=== PATIENT | female | born 1985 | race Two or more races ===

== ENCOUNTER 2018-03-10 07:27 | Observation (INO) | payer OTHER ==
[~2018-03-10] VITALS: Ht 172.7 cm; Wt 90.5 kg
[2018-03-10 07:50] VITALS: BP 135/83
[2018-03-10 14:09] VITALS: BP 126/75
[2018-03-10 16:50] VITALS: BP 116/67
[2018-03-10 22:09] VITALS: BP 111/73
[2018-03-11 00:35] VITALS: BP 111/73
[2018-03-11 05:14] VITALS: BP 104/66
[2018-03-11 08:28] VITALS: BP 103/66
== END 2018-03-11 08:52 | disposition home or self-care (01) | DRG 404 ==
LOC: DS 07:27 → OR 09:30 → MU 12:40
PROVIDERS: ADMIT Surgery
PROC: 0GBH0ZZ Excision of Right Thyroid Gland Lobe, Open Approach (ICD-10-PCS; principal; 2018-03-10 09:30)
DX: E04.1 Nontoxic single thyroid nodule (principal); R13.10 Dysphagia, unspecified; E66.9 Obesity, unspecified; Z68.30 Body mass index [BMI] 30.0-30.9, adult
CPT/HCPCS: G0378; J0330; J0690; J2175; J2250; J2405; J2704; J3010; J3490; J7030; J7120